=== PATIENT | male | born 1995 | race Caucasian/White ===

== ENCOUNTER → 2022-10-11 | Outpatient (CLI) | payer OTHER | END | disposition home or self-care (01) | LOC: NUCLEAR 09-21 06:45 | PROVIDERS: ATTEND Family Medicine | DX: M79.671 Pain in right foot (principal); M79.672 Pain in left foot; M76.892 Other specified enthesopathies of left lower limb, excluding foot ==

== ENCOUNTER 2022-10-12 08:49 | Outpatient (CLI) | payer OTHER | END 2022-10-12 08:52 | disposition home or self-care (01) | LOC: NUCLEAR 08:49 | PROVIDERS: ATTEND Family Medicine | DX: M79.671 Pain in right foot (principal); M79.672 Pain in left foot; M76.892 Other specified enthesopathies of left lower limb, excluding foot ==